=== PATIENT | female | born 1995 | race Caucasian/White ===

== ENCOUNTER 2020-11-20 01:38 | Outpatient (CLI) | payer BC, SELFPAY ==
[2020-11-21 17:16] LABS: SARS-CoV-2 RNA PCR Negative
== END 2020-11-20 01:39 | disposition home or self-care (01) ==
LOC: ANHCOVIDDT 01:38
PROVIDERS: Visit Provider Obstetrics & Gynecology
DX: Z01.812 Encounter for preprocedural laboratory examination (principal); Z20.822 Contact with and (suspected) exposure to COVID-19
CPT/HCPCS: C9803; U0003; U0005

== ENCOUNTER 2020-11-23 00:33 | Day surgery (SDC) | payer BC, SELFPAY ==
[2020-11-16 17:55] VITALS: BMI 21.9
--- NOTE | 2020-11-22 15:35 | WPDANESEPPF ---
Anes - Initial Pre Proc Eval Procedure: Operation Date: 11/23/20 10:30 Proposed Procedures p Laparoscopic Right Ovarian Cystectomy - Juanita Singh MD Date/Time: 11/22/20 15:35 Surgeon: Juanita iSngh MD Pre Op Diagnosis: Cyst Right Ovary Patient Data Age: 25 Gender: F Height: 1.7 m Weight: 63.7 kg Allergies Allergy/AdvReac Type Severity Reaction Status Date / Time No Known Allergies Allergy Verified 11/23/20 09:16 Home Medications Medication Instructions Recorded Confirmed Type multivit with min-folic acid 1 tablet PO DAILY 11/16/20 11/23/20 History [Adult One Daily Multivitamin] Patient hx anesthesia problems: none Family hx anesthesia problems: none PMF Past Medical History Medical History Marijuana use Social History Social History Years smoked: 10 Smoking status: Former smoker Tobacco type: cigarettes Substance use type: marijuana Other substance usage details: DAILY MARIJUANA USE Living arrangements: with family Spiritual care concerns: No Anes - Eval Final PreProcedure Day of Procedure 11/22/20 15:35 Patient weight: normal Heart: regular rate and rhythm Lungs: clear to auscultation and normal air movement Airway: Mallampati scale class II Neurological: alert and oriented Last oral intake: >/= 8 hours ASA classification: II Emergent: no Anesthetic plan: proceed Anesthesia type and monitoring: general ETT Informed Consent: The patient's anesthetic plan and its attendant risks and benefits were discussed with the patient/family/POA. Questions were solicited and answers provided to the satisfaction of the patient/family/POA.
[2020-11-23] VITALS (8 sets, daily range): BP systolic 98–118; BP diastolic 60–76; PULSE 65–103; RESP 12–20; TEMP 36.2–37.2; O2SAT 98–100
--- NOTE | 2020-11-23 07:15 | WPDHPUPDATE1 ---
History and Physical Update Update Date/Time: 11/23/20 07:15 History and Physical has been reviewed, including an updated exam of the patient. There are NO changes in the patient's condition. Risks, benefits, and alternatives have been discussed and questions answered. Patient agrees to proceed with procedure.
[2020-11-23] MEDS: ACETAMINOPHEN 500 MG TABLET 1000 MG PO (09:24)
[2020-11-23] MEDS: LACTATED RINGERS 1,000 ML 30 ML IV CONT ×2 (09:24→12:33)
[2020-11-23] MEDS: KETOROLAC 15 MG/ML VIAL (*BKC) IV PUSH (09:31)
--- NOTE | 2020-11-23 11:11 | SUR.PREOP ---
1100 pt ambulated to bathroom w/o difficulty.
--- NOTE | 2020-11-23 13:02 | PM.PROC ---
Procedure Note - Detailed Date of procedure: 11/23/20 Pre-op diagnosis: Cyst Right Ovary Pelvic pain Procedure performed: Right ovarian cystectomy, resection of left paratubal cyst Description of procedure: The patient was taken the operating room. She was prepped and draped in the dorsal lithotomy position after induction of general anesthesia. A 5 mm left upper quadrant incision was made in the abdominal skin with a scalpel. A 5 mm trocar was inserted the intra-abdominal cavity under direct visualization of the scope. A 5 mm left lower quadrant incision was made with the scalp on the abdominal skin and a 5 mm trocar was inserted the intra-abdominal cavity under direct visualization of the scope. A 5 mm infraumbilical incision was made with scalpel and a 5 mm trocar was inserted into the intra-abdominal cavity under direct visualization of the scope. A right ovarian cyst was removed. It was cauterized and then removed with sharp and blunt dissection. The cut surface was cauterized when it was removed and it was covered with Interceed. A left paratubal cyst was removed in a similar fashion using sharp and blunt dissection and cautery to remove the cyst from the paratubal tissue. The pelvis was irrigated with copious amounts of normal saline. The pneumoperitoneum was reduced. The trocars were removed. The patient was taken recovery room stable condition. Sponge lap and needle counts were correct x2. [facility] Surgeon: Juanita Singh MD Estimated blood loss (mL): 20 Drains: No Packing: No Complications: No immediate complications Condition: stable Disposition: PACU Findings: Right ovarian corpus luteum cyst, left ovarian paratubal cyst, some hyperemic tissue in the posterior cul-de-sac, of unknown significance. The paracolic tissue on the right side was adherent to the right abdominal wall.
--- NOTE | 2020-11-23 13:26 | PM.PROC ---
Procedure Note - Detailed Date of procedure: 11/23/20 Pre-op diagnosis: Cyst Right Ovary Post-op diagnosis: same Procedure performed: Suction D&C Description of procedure: The patient was taken the operating room. She has prepped and draped in dorsal lithotomy position after induction of mac anesthesia. A speculum was placed in the vagina. The cervix was grasped with a tenaculum. The cervix was injected at 3 and 9:00 a.m. with 1% lidocaine. The cervix was dilated up to 8 mm using Contreras dilators. An 8 curved plastic suction curette was then applied to the intrauterine cavity. All of the surfaces in the intrauterine cavity were curettage under VAC. A sharp medium-size curette was then used to curettage all the surfaces to confirmed the removal of all the products conception. When all surfaces for bleed to be clean the curette was removed. The suction curette was then reapplied to remove all the debris. The procedure was terminated. The tenaculum was removed. The speculum was removed. The patient tolerated the procedure well. She was taken recovery room in stable condition. Anesthesia: MAC Surgeon: Juanita Singh MD Estimated blood loss (mL): 25 Drains: No Packing: No Pathology: yes Complications: No immediate complications Condition: stable Disposition: PACU Findings: Normal vulva vagina and cervix. The moderate amounts of products conception. 8 cm uterus.
[2020-11-23] MEDS: oxyCODONE HCL (*CRX) 5 MG TAB IR PO (13:52)
== END 2020-11-23 14:37 | disposition home or self-care (01) ==
PROVIDERS: Visit Provider Obstetrics & Gynecology
PROC: (CPT 49320; principal; 2020-11-23 10:30)
DX: N83.11 Corpus luteum cyst of right ovary (principal); N83.8 Other noninflammatory disorders of ovary, fallopian tube and broad ligament; F12.90 Cannabis use, unspecified, uncomplicated; Z87.891 Personal history of nicotine dependence
CPT/HCPCS: 58662; 88305; A9270; J0330; J1100; J1885; J2250; J2405; J2704; J2710; J3010; J7030; J7120

== ENCOUNTER 2021-09-07 17:15 | Emergency (ER) | payer BC, SELFPAY ==
[2021-09-07 17:27] VITALS: BP 135/85; PULSE 87; RESP 16; TEMP 36.8; O2SAT 100
--- NOTE | 2021-09-07 17:29 | ED.URI ---
HPI - URI/Sore Throat General Chief Complaint: Upper Respiratory Infection Stated Complaint: SORE THROAT Source: patient and RN notes reviewed Mode of arrival: ambulatory History of Present Illness HPI Narrative: This is a 25-year-old female who presented to urgent care with complaints of throat pain that she has had for approximately 1 week while at home she gargle with salt water with no relief. Patient notes that her is concerned about HIV. She recently got treated for gonorrhea approximately 2 months ago. She has an appointment with her primary care physician on the of this month to get a full work-up for STDs. The patient denies SOB, CP, palpitation, extremity numbness, lightheadedness, dizziness, constipation, diarrhea, chills, or fever. Related Data Home Medications Medication Instructions Recorded Confirmed Adult One Daily Multivitamin 1 tablet PO DAILY 11/16/20 11/23/20 Allergies Allergy/AdvReac Type Severity Reaction Status Date / Time No Known Allergies Allergy Verified 11/23/20 09:16 Review of Systems Review of Systems: A 14 organ system Review of Systems was performed and pertinent positives included in the HPI, otherwise remaining ROS is negative. [facility] Past Medical History Medical History Marijuana use Social History Social History Years smoked: 10 Smoking status: Former smoker Tobacco type: cigarettes Substance use type: marijuana Other substance usage details: DAILY MARIJUANA USE Spiritual care concerns: No Exam Narrative: GENERAL: This is a well-nourished, well-developed patient, in no apparent distress. HEAD: normocephalic, atraumatic. EYES: PERRL. Sclera clear/white. Vision is grossly intact. EARS: External ears normal, auditory canals clear and without drainage, TMs normal without perforation. Hearing grossly intact. NOSE: External nose normal with no obvious nasal discharge, nares without redness, no rhinorrhea. THROAT: Mucous membranes moist, posterior pharynx edematous and erythema. Multiple large blisters to the back of her oral cavity NECK: Neck supple, non-tender without lymphadenopathy, masses or thyromegaly. CARDIOVASCULAR: Regular rate and rhythm without murmurs, gallops, or rubs. RESPIRATORY: Clear to auscultation. Breath sounds equal bilaterally. No wheezes, rales, or rhonchi. GASTROINTESTINAL: Abdomen soft, non-tender, nondistended. Bowel sounds are active. No hepato-splenomegaly, or palpable masses. No guarding. SKIN: warm, intact with no suspicious lesions or rash, good texture and turgor. NEURO: awake, alert, and oriented to person, place and time. There were no obvious focal neurologic abnormalities. Steady gait EXTREMITIES: Normal range of motion. No edema. No calf tenderness. Negative Homans sign bilaterally. BACK: Nontender without deformity or crepitance. No flank tenderness. Course Course Emergency Course: Patient strep negative she will be treated for pharyngitis due to multiple blisters to her oral cavity. Patient instructed to get a full STD work-up and to include herpes. She was discharged with Augmentin x7 days Vital Signs Vital signs: Vital Signs Temperature 98.3 F 09/07/21 17:27 Pulse Rate 87 09/07/21 17:27 Respiratory Rate 16 09/07/21 17:27 Blood Pressure 135/85 09/07/21 17:27 Pulse Oximetry 100 09/07/21 17:27 Temperature 98.3 F 09/07/21 17:27 Pulse Rate 87 09/07/21 17:27 Respiratory Rate 16 09/07/21 17:27 Blood Pressure 135/85 09/07/21 17:27 Pulse Oximetry 100 09/07/21 17:27 MDM - URI/Sore Throat Differential Diagnosis Differential diagnosis: Likely upper respiratory infection, sinusitis, viral infection, influenza, pharyngitis and other (Herpes, HIV) Lab Data Labs: Strep Screen Presumptive Negative *(Reference Range: Negative)* Discharge Plan Discharge Clinical Impression: Pharyngitis Qualifiers: Pharyngitis/tonsil
== END 2021-09-07 17:49 | disposition home or self-care (01) ==
PROVIDERS: Emergency Provider Nurse Practitioner; PCP Internal Medicine
DX: J02.9 Acute pharyngitis, unspecified (principal); Z87.891 Personal history of nicotine dependence; F12.90 Cannabis use, unspecified, uncomplicated
CPT/HCPCS: 87081; 87880; 99213; G0463

== ENCOUNTER 2021-10-26 13:17 | Outpatient (CLI) | payer BC, SELFPAY ==
[2021-10-26 14:01] LABS: Hematocrit 40.5 % (37.0-47.0); Hemoglobin 14.1 g/dL (12.0-15.0); Mean Corpuscular HGB Conc 34.8 g/dl (32-36); Mean Corpuscular Hemoglobin 33.4 pg (26-34); Mean Platelet Volume 9.2 fl (7.4-10.4); Platelet Count Result 187 k/mm3 (150-375); Red Blood Count 4.22 M/mm3 (4.2-5.4); Red Cell Distribution Width 11.6 % (11.5-14.5); White Blood Count 8.7 K/mm3 (4.5-10.0)
[2021-10-26 14:11] LABS: Alanine Aminotransferase 29 U/L (4-35); Albumin Level 4.9 g/dL (3.5-5.1); Alkaline Phosphatase 78 U/L (38-126); Anion Gap 11 mmol/L (8-16); Aspartate Amino Transferase 43 U/L (14-36); Bilirubin,Total 0.7 mg/dL (0.2-1.3); Blood Urea Nitrogen 12 mg/dL (7-17); Calcium 9.5 mg/dL (8.4-10.2); Carbon Dioxide 25 mmol/L (22-30); Chloride 103 mmol/L (98-107); Cholesterol 148 mg/dL (0-200); Estimated Glomerular Filt Rate > 60; Glucose 100 mg/dL (65-110); HDL Direct 63 mg/dL; Potassium 3.7 mmol/L (3.4-5.0); Sodium 139 mmol/L (137-145); Triglycerides 80 mg/dL (<150)
[2021-10-26 14:22] LABS: LDL Cholesterol Direct 62 mg/dL
[2021-10-26 14:57] LABS: Hepatitis B Surface Antigen Negative (Negative)
[2021-10-26 15:03] LABS: HAV RESULT Negative (Negative); Hepatitis B Core IgM Result Negative (Negative)
[2021-10-26 15:14] LABS: Hepatitis C Virus Antibody Negative (Negative)
[2021-10-26 15:17] LABS: Folic Acid 12.7 ng/mL (2.76->20)
[2021-10-27 11:48] LABS: Rapid Plasma Reagin Non-Reactive (NonReactive)
[2021-10-28 15:56] LABS: HIV 1 2 Ag Ab 4th Gen w Rflxs Non-reactive (Non-reactive)
== END 2021-10-26 13:18 | disposition home or self-care (01) ==
LOC: ANHLAB 13:19
PROVIDERS: PCP Internal Medicine; Visit Provider Physician Assistant
DX: Z00.00 Encounter for general adult medical examination without abnormal findings (principal); Z11.3 Encounter for screening for infections with a predominantly sexual mode of transmission
CPT/HCPCS: 36415; 80053; 80061; 80074; 82607; 82746; 84443; 85027; 86592; 86695; 86696; 87389